=== PATIENT | male | born 1970 | race Caucasian/White ===

== ENCOUNTER → 2019-11-08 10:09 | Outpatient (CLI) | payer OTHER, SELFPAY ==
--- NOTE | 2019-11-08 10:13 | NM_ITS ---
CLINICAL: 49-year-old male with reported history of postprandial abdominal bloating. SEMI-SOLID PHASE 99m Tc SULFUR COLLOID GASTRIC EMPTYING STUDY COMPARISON: None available FINDINGS: The patient was administered 1.1 mCi of 99m Tc sulfur colloid mixed with oatmeal and consumed per os. Image acquisitions in the anterior-posterior projections for a total of 60 minutes. There is prompt visualization of the stomach. There is no gastroesophageal reflux identified. The T1/2 linear fit was calculated to be 51.11 minutes, (Normal: 12-56 minutes). NM/Gastric Emptying Study IMPRESSION: 1. NORMAL 99m Tc sulfur colloid semi-solid phase (oatmeal) gastric emptying imaging examination. A. There is normal and preserved semi-solid phase gastric emptying compared to normal controls. (Remedios et al, J Nucl Med Tech 38: 186, 2010). Electronically Signed: Didier Holm DO at 10:14 EST Tel , Service support ,
== END ==
PROVIDERS: PCP Family Medicine
DX: R11.0 Nausea (principal)
CPT/HCPCS: 78264; A9541

== ENCOUNTER → 2019-12-03 09:39 | Outpatient (CLI) | payer OTHER, SELFPAY ==
[2019-12-03 10:49] LABS: Absolute Lymphocyte Count 2.61 X10^3/uL (0.83-4.51); Absolute Neutrophil Count 3.8 X10^3/uL (2.0-7.7); Basophil# 0.04 X10^3/uL; Basophil% 0.6 % (0-1); Eosinophil# 0.16 X10^3/uL; Eosinophils% 2.2 % (0-5); Hematocrit 44.9 % (40-54); Hemoglobin 14.7 g/dL (13.0-16.5); Lymphocyte # 2.61 X10^3/ul (4.0); Lymphocyte % 36.3 % (19-41); Mean Corp Hgb Conc 32.7 g/dL (32-36); Mean Corpuscular Volume 82.4 fL (80-94); Monocyte% 8.3 % (0-10); NRBC Flagged by Analyzer 0 % (0-5); Neutrophil # 3.77 X10^3/uL (2.7-7.7); Neutrophil % 52.5 % (47-70); Platelet Count 255 K/mm3 (150-450); RBC Distribution Width CV 13.2 % (11.6-14.6); RBC Distribution Width SD 38.9 fl (35.1-43.9); Red Blood Count 5.45 M/mm3 (4.6-6.2); White Blood Count 7.2 K/mm3 (4.4-11.0)
[2019-12-03 11:23] LABS: ALB/GLOB Ratio 1.1 RATIO (0.9-2.4); AST(SGOT) 13 U/L (15-37); Alanine Aminotransfer ALT/SGPT 28 U/L (16-61); Albumin, Serum 3.9 g/dL (3.2-5.0); Alkaline Phosphatase 60 U/L (45-117); Amylase 63 U/L (25-115); Anion Gap 8 (5-15); BUN 17 mg/dL (7-18); BUN/Creat Ratio 14.5 RATIO (10-20); Calcium,Total 8.7 mg/dL (8.5-10.1); Chloride 102 mmol/L (98-107); Creatinine, Serum 1.17 mg/dL (0.70-1.30); EST Glomerular Filtration Rate 71 mL/min (>60); Est Glom Filt Rate - Afr Amer 85 mL/min (>60); Globulin 3.6 g/dL (2.2-4.2); Glucose 94 mg/dL (74-106); Lipase 131 U/L (73-393); Potassium 3.4 mmol/L (3.5-5.1); Protein, Total 7.5 g/dL (6.4-8.2); Sodium Level 139 mmol/L (136-145); T4 Free Direct 1.25 ng/dL (0.76-1.46); Thyroid Stim Hormone (TSH) 2.55 uIU/mL (0.358-3.74)
[2019-12-04 15:46] LABS: Deamidated Gliadin IgA 3 units (0-19); Deamidated Gliadin IgG 2 units (0-19); Immunoglobulin A 176 mg/dL (90-386); t-Transglutaminase IgA <2 U/mL (0-3)
== END ==
PROVIDERS: PCP Family Medicine
DX: K58.2 Mixed irritable bowel syndrome (principal)
CPT/HCPCS: 36415; 80053; 82150; 82784; 83516; 83690; 84439; 84443; 85025

== ENCOUNTER 2020-09-18 10:35 | Inpatient (IN) | payer OTHER, SELFPAY ==
[2020-09-18] VITALS (14 sets, daily range): BP systolic 124–173; BP diastolic 62–106; PULSE 71–143; RESP 16–24; TEMP 36.3–37.6; O2SAT 94–98; BMI 35.7
--- NOTE | 2020-09-18 10:53 | CT_ITS ---
STUDY: CT ABDOMEN AND PELVIS WITH CONTRAST REASON FOR EXAM: Male, 50 years old. BLOODY DIARRHEA X24 HOURS NAUSEA RADIATION DOSAGE (If Supplied By Facility): CTDIvol = ( 16.73 ) mGy, DLP = ( 1202.25 ) mGycm TECHNIQUE: Transaxial images were obtained from the dome of the diaphragm to the symphysis pubis without oral contrast. 100CC ISOVUE 300 and amp;amp; GASTROGRAFIN was administered. Sagittal and coronal images were reconstructed. Individualized dose optimization techniques were used for this CT. COMPARISON: None. FINDINGS: Mild degree of increased markings at the lung bases suggestive of atelectasis. The visualized portions of the heart are within normal limits. There is decreased attenuation of the liver consistent with steatosis. Normal gallbladder and extrahepatic biliary system. Normal spleen. Normal pancreas. Normal bilateral adrenal glands. There is a 3 mm nonobstructive calculus in the anterior pole calyx of the right kidney. Normal left kidney. There is a small hiatal hernia. Normal small intestine. Normal colon. The distal tip of the appendix is distended and measures 4.5 cm x 1.7 cm. 2 rounded densities seen within it. This may represent either a mucocele of the distal portion of the appendix or appendicitis with the partially calcified appendicoliths. Minimal increased markings are seen in the surrounding peritoneal fat. There is scattered atherosclerotic calcification of the abdominal aorta, without a demonstrated aneurysm. Normal inferior vena cava. Normal retroperitoneum. Normal urinary bladder. There are prostatic calcifications. There is a left-sided inguinal hernia containing adipose tissue. Normal osseous structures. CT/Abdomen/Pelvis WITH Contrast IMPRESSION: Fatty infiltration of the liver. 3 mm nonobstructive calculi seen in the anterior cortex of the right kidney. Dilatation of the distal tip of the appendix as described. 2 rounded densities seen within it. This may represent either a mucocele of the distal portion appendix or appendicitis with appendicoliths. Clinical correlation is recommended. Electronically Signed: Anmol Quispe, at 13:26 EST , Service support ,
--- NOTE | 2020-09-18 10:54 | ED.DCSUM_ITS ---
- ER Visit Summary Date of Service: 09/18/20 Chief Complaint: Bloody diarrhea History of Present Illness: The patient is a 50 M who presents with bloody diarrhea that has been constant since yesterday. Patient states he has had several episodes of this since yesterday. Patient admits to some mild diffuse abdominal cramping. Patient states his stools have been watery and maroon. Patient denies any bright red rectal bleeding. Patient admits to some nausea and vomiting. Patient denies any hematemesis or coffee-ground emesis. Patient denies any dysuria or hematuria. Patient states his cramping sometimes improves with eating. Physical Examination: Vital signs are stable except for tachycardia of 143 a mild tachypnea of 24. Patient is afebrile. Patient is in no acute distress. Oral mucosa is pink and moist. Neck is supple. Trachea is midline. There is no JVD noted. Heart was regular rate and rhythm. Lungs are clear and equal bilaterally. Abdomen is soft. Bowel sounds are normal. There is no tenderness. There is no rebound or guarding noted. Rectal exam showed good sphincter tone. There is no external hemorrhoid noted. There is some dark red blood noted with the stool. Skin is warm dry. Cranial nerves II through XII are intact. There are no focal motor or sensory deficits noted. Extremities are intact. There is no calf tenderness or edema. Test Results: CBC shows a mild leukocytosis of 12.5. Hemoglobin was stable at 16.7. Comprehensive metabolic profile showed a slightly elevated creatinine 1.48. BUN was 25. PT with INR and PTT were normal. Lipase was normal. CT scan of the abdomen pelvis was obtained. The distal tip of the appendix is dilated consistent with possible appendicitis. This was interpreted by the radiologist and reviewed by myself. COVID-19 rapid antigen was added on. EKG was obtained. On my interpretation, there is normal sinus rhythm with a rate of 91. There is some T wave inversion in leads V4 through V6. This was unchanged compared to previous EKG dated 05/17/2017. Emergency Department Course and Treatment: Patient was given IV fluids and Zofran. Case was discussed with Dr. Nolasco. He reviewed the CT scan and feels the patient does have appendicitis. He will take the patient to the operating room tonight. Patient was given a dose of Zosyn here. Patient understood and was agreeable with the plan. All questions were answered. Disposition: Admit to hospital Impression: 1. Acute appendicitis This note was generated with [employer] dictation software. It may contain incorrect words, spelling, and punctuation that were not noted in review of the chart prior to signing ED Disposition - Plan for ED Patient: Disposition: Acute Care Hospital [facility] Diagnosis: Acute appendicitis
[2020-09-18 11:04] LABS: Absolute Neutrophil Count 7.4 X10^3/uL (2.0-7.7); Basophil# 0.03 X10^3/uL; Basophil% 0.2 % (0-1); Eosinophil# 0.13 X10^3/uL; Hematocrit 48.8 % (40-54); Hemoglobin 16.7 g/dL (13.0-16.5); Lymphocyte % 27.1 % (19-41); Mean Corp Hgb Conc 34.2 g/dL (32-36); Mean Corpuscular Volume 81.7 fL (80-94); Mean Platelet Vol. 8.9 fl (6.2-12.0); Monocyte# 1.55 X10^3/uL; Monocyte% 12.4 % (0-10); NRBC Flagged by Analyzer 0 % (0-5); Neutrophil # 7.38 X10^3/uL (2.7-7.7); POSITIVE DIFFERENTIAL YES; Platelet Count 347 K/mm3 (150-450); RBC Distribution Width CV 13.5 % (11.6-14.6); RBC Distribution Width SD 39.4 fl (35.1-43.9); Red Blood Count 5.97 M/mm3 (4.6-6.2); White Blood Count 12.5 K/mm3 (4.4-11.0)
[2020-09-18 11:05] LABS: Differential Indicated SCAN CRITERIA MET
[2020-09-18] MEDS: 0.9% Normal Saline 1,000 ML 1000 ML IV (11:09)
[2020-09-18] MEDS: Ondansetron 4 MG/2 ML Vial IV (11:09)
[2020-09-18 11:15] LABS: AST(SGOT) 14 U/L (15-37); Alanine Aminotransfer ALT/SGPT 41 U/L (16-61); Albumin, Serum 4.1 g/dL (3.2-5.0); Alkaline Phosphatase 70 U/L (45-117); Anion Gap 10 (5-15); BUN 25 mg/dL (7-18); BUN/Creat Ratio 16.9 RATIO (10-20); Calcium,Total 8.6 mg/dL (8.5-10.1); Chloride 102 mmol/L (98-107); Creatinine, Serum 1.48 mg/dL (0.70-1.30); EST Glomerular Filtration Rate 54 mL/min (>60); Est Glom Filt Rate - Afr Amer 65 mL/min (>60); Estimated Creatinine Clearance 62.34 ml/min; Globulin 4.1 g/dL (2.2-4.2); Glucose 127 mg/dL (74-106); Lipase 101 U/L (73-393); Potassium 3.5 mmol/L (3.5-5.1); Protein, Total 8.2 g/dL (6.4-8.2); Sodium Level 135 mmol/L (136-145)
[2020-09-18 11:17] LABS: Prothrombin Time (Protime)PT. 12.8 SECONDS (11.7-14.9)
[2020-09-18 11:18] LABS: Partial Thromboplast Time 25.5 Seconds (24.1-36.2)
[2020-09-18 12:52] LABS: Pathologist Review Reviewed
--- NOTE | 2020-09-18 14:21 | EKG12_ITS ---
Test Reason : PRE OP Blood Pressure : / mmHG Vent. Rate : 091 BPM Atrial Rate : 091 BPM P-R Int : 152 ms QRS Dur : 088 ms QT Int : 362 ms P-R-T Axes : 028 060 -21 degrees QTc Int : 445 ms Normal sinus rhythm Nonspecific T wave abnormality Abnormal ECG Confirmed by EDWARD VALERO, NELLY ([id number]), slot editor JN STEWARD ([id number]) on 09/22/2020 9:48:49 AM Referred By: LANDON Confirmed By:NELLY LEON MD
--- NOTE | 2020-09-18 14:33 | HP.PCM_ITS ---
Problem List (1) Abdominal pain Status: Acute (2) Diarrhea Status: Acute History of Present Illness Date of Admission: 09/18/20 Chief Complaint: Bloody diarrhea The patient is a 50 year old M who presented with a 1 day history of nausea, dry heaves, diarrhea and rectal bleeding. Patient noted minimal amount of right sided abdominal pain associated with these symptoms. Patient states he has had 1 day history of lack of appetite. Patient notes the bright red rectal bleeding occurred yesterday. CT scan of the abdomen/pelvis was obtained which demonstrated: Fatty infiltration of the liver. 3 mm nonobstructive calculi seen in the anterior cortex of the right kidney. Dilatation of the distal tip of the appendix as described. 2 rounded densities seen within it. This may represent either a mucocele of the distal portion appendix or appendicitis with appendicoliths. Clinical correlation is recommended. Patient states he had a colonoscopy last year by a physician in [place]. Per patient, he had numerous polyps some that were not removed. Physician recommended short term follow-up. Patient is unsure when he is to go back. Patient notes mother had colon cancer in her 70's. Patient denies previous abdominal surgeries or other procedures. He denies cardiac history or pulmonary history. Patient mentioned he had COVID at the end of June. He was hospitalized for 1 night due to heart palpitations. He has not been around any family members or friends whom have tested positive within the last 14 days. He denies being more short of breath or having chest pain currently. He denies history of stroke, bl ood clots or myocardial infarction. He notes being placed on Heparin during his recent bout of COVID. He is no longer on anticoagulants. Patient takes HTN and cholesterol medication. WBC 12.5, Hgb 16.7, Hct 48.8, plt 347. Past Medical History Allergies No Known Allergies Allergy (Verified 09/18/20 10:38) Home Medications: Ambulatory Orders Medication Instructions Recorded Metoprolol(XL)Succ [Toprol Xl 50 mg PO DAILY 07/21/14 (Beta Aislinn)] Hydrochlorothiazide [Hctz] 25 mg PO DAILY 09/18/20 Lisinopril 5 mg PO DAILY 09/18/20 Surgical History: no surgical history Psychiatric History: No pertinent psych hx Lives: Spouse/ Significant Other Smoking Status: Former smoker Tobacco Use: Non-smoker Alcohol: None Drugs: None - *Family History Maternal History Items: Cancer - colon- age 70's Paternal History Items: No pertinent history Review of Systems Constitutional: Reports: Anorexia HEENT: Denies: Head Aches, Sinus Congestion, Sinus Drainage Cardiovascular: Denies: Chest Pain, Palpitations Respiratory: Denies: Cough, Shortness of breath at rest, Sputum production Gastrointestinal: Reports: Diarrhea, Hematochezia, Nausea, Vomiting Genitourinary: Denies: Dysuria Musculoskeletal: Denies: Joint Pain, Joint Tenderness Skin: Denies: Rash, Wounds Neurological: Denies: Numbness, Tingling, Focal weakness Psychiatric: Denies: Anxiety, Depression, Homicidal Ideations, Suicidal Ideations Hematologic/ Lymphatic: Denies: Easy Bruising, Easy Bleeding VTE Information - Inpt Only VTE Present on Admission: Yes Patient Problems: Active and Suspected Problems Abdominal pain (Acute) Diarrhea (Acute) - Physical Exam Vitals/I&O's: Vital Signs Temp Pulse Resp BP Pulse Ox 98.7 F 71 16 135/78 H 97 09/18/20 10:36 09/18/20 14:10 09/18/20 14:10 09/18/20 14:10 09/18/20 14:10 Oxygen Delivery Method Room Air Weight: 249 lb 5.485 oz Body Mass Index (BMI) 35.7 Intake and Output for Last 24 Hours 09/16/20 09/17/20 09/18/20 23:59 23:59 23:59 Intake Total 1000 / 1000 Balance 1000 / 1000 General: Alert, Oriented x3, Cooperative HEENT: Atraumatic, PERRLA, EOMI, Normocephalic Neck: Supple, No JVD, Negative Carotid Bruits Lungs: Clear to auscultation, Normal air movement Cardiovascular: Regular rate, No murmurs Abdomen: Soft, Hypoactive Bowel Sounds, Obese, Tender - right lower quadrant Extremities: No edema, Capillary Refill Less than 3 Seconds Skin: No rashes, No breakdown Musculoskeletal: No Tenderness to Palpation of Joints or Extremities Neurological: Neuro grossly intact Psych/Mental Status: Normal Affect, Appropriate Microbiology Past 72 Hours 09/18/20 10:54 Stool Stool Occult Blood (PHILLIP) - Final Occult Blood Positive Laboratory Results 09/18/20 10:44: WBC 12.5 H, RBC 5.97, Hgb 16.7 H, Hct 48.8, MCV 81.7, MCH 28.0, MCHC 34.2, RDW Std Deviation 39.4, RDW Coeff of Fausto 13.5, Plt Count 347, MPV 8.9, Immature Gran % (Auto) 0.300, Neut % (Auto) 59.0, Lymph % (Auto) 27.1, [place] % (Auto) 12.4 H, Eos % (Auto) 1.0, Baso % (Auto) 0.2, Absolute Neuts (auto) 7.4, Absolute Lymphs (auto) 3.40, Nucleated RBC % 0, Diff Path Review Reviewed 09/18/20 10:44: PT 12.8, INR 1.0, APTT 25.5 09/18/20 10:44: Sodium 135 L, Potassium 3.5, Chloride 102, Carbon Dioxide 23.0, Anion Gap 10, BUN 25 H, Creatinine 1.48 H, Estim Creat Clear Calc 62.34, Est GFR (MDRD) Af Amer 65, Est GFR (MDRD) Non-Af 54 L, BUN/Creatinine Ratio 16.9, Glucose 127 H, Calcium 8.6, Total Bilirubin 0.70, AST 14 L, ALT 41, Alkaline Phosphatase 70, Total Protein 8.2, Albumin 4.1, Globulin 4.1, Albumin/Globulin Ratio 1.0, Lipase 101 Current Medications Piperacillin Sod/Tazobactam (Sod 4.5 gm/ Sodium Chloride) 100 mls @ 200 mls/hr IV X1 ONE Stop: 09/18/20 14:37 Last Admin: 09/18/20 14:27 Dose: 200 mls/hr Documented by: Assessment/Plan All Active Problems Abdominal pain (Acute) Diarrhea (Acute) I am following this patient in conjunction with Dr. Nolasco. He will independently evaluate this patient. Impression: Acute appendicitis. Bloody diarrhea. Nausea/vomiting x 1 day. Plan: Discussed patient with Dr. Nolasco. Dr. Nolasco will plan to perform a laparoscopic appendectomy. Procedure details, risks and benefits have been explained. Patient has had the opportunity to ask and have questions answered. Patient verbally understands and agrees with the plan. He will be admitted for observation following the procedure. Thank you for allowing us to participate in this patient's care. Office Visits / Consults: [id number] OP Consult L3
--- NOTE | 2020-09-18 15:30 | APP_PTH ---
PATIENT: FROYLAN LA LOC: MS3 U#:[id number] AGE/SX: 50/M ROOM: [facility] RE09/18/[address]: Dr. Johnny Nolasco MD : 1970 BED: 1 DIS: 09/19/2020 SPEC #: [id number] RECD: 09/19/20 07:35 STATUS: TREVON HUNT #: [id number] NEL: 09/18/20 15:[address]: Johnny Nolasco DEPT: SURGICAL PATHOLOGY RECD BY: Sanam Bender ENTERED: 09/19/20 08:10 SP TYPE: APPENDIX OTHR DR: MD Dr. Hai Rae MD Tissues: Appendix, NOS Procedures: Surgery Specimen Level IV HEADER OPERATION: Laparoscopic appendectomy, repair of small bowel enterotomy PRE-OP DIAGNOSIS: Abdominal pain, diarrhea TISSUE SUBMITTED: Appendix MICROSCOPIC DIAGNOSIS Appendix, appendectomy: Minimal early acute appendicitis. Focal hyperplastic changes. :bella 09/23/2020 COMMENT Minimal acute inflammation is noted in the lumen and superficial mucosa. Dilated portion of the appendix show focal hyperplastic changes. The entire appendix is examined. Case has been reviewed in consultation with Dr. Carr who concurs with the above diagnosis. IDC:AM MICROSCOPIC DESCRIPTION Slides are reviewed. GROSS DESCRIPTION Received in fixative is one container labeled with the patient's name and designated appendix. The specimen consists of an appendix measuring 6 cm in length and diameter varies from 1 to 1.5 cm. No gross perforations are evident. Serial sections reveal a patent lumen with fecal material. No mass lesion is identified. Glost Kiln Operator sections are submitted in one cassette. / AM:bella 09/19/2020 The rest of the appendix is submitted in four more cassettes, 2-5. Cassette 2 contains the rest of the tip and most proximal portion of the appendix. / SJ:bella 09/22/20 TC:5 CPT: 48077
[2020-09-18] MEDS: Bupiv/Epi 0.25% 30 ML Vial (16:23)
--- NOTE | 2020-09-18 16:53 | OP.PCM_ITS ---
Problem List (1) Acute appendicitis Status: Acute Qualifiers: Acute appendicitis type: unspecified acute appendicitis type Qualified Code(s): K35.80 - Unspecified acute appendicitis Report of Operation Date of Procedure: 09/18/20 Pre-Operative Diagnosis: Acute appendicitis Post-Operative Diagnosis: 1. Iatrogenic enterotomy of small bowel. 2. Dilated appendix Surgery/Procedure Performed:: 1. Laparoscopic appendectomy. 2. Repair of enterotomy Specimen's removed: Appendix Description of Procedure: The patient was brought into the operating room and general anesthesia was induced. The left arm was tucked and the abdomen was prepped and draped in usual sterile fashion. A small midline incision was made superior to the umbilicus and deepened to the level of the fascia. The fascia was elevated and incised. The peritoneum was also elevated and incised. A finger sweep was performed and a balloon trocar was placed into the abdomen and inflated. The abdomen was insufflated to 15 mmHg and the camera was inserted and the abdomen was inspected for any injuries upon entering the abdomen. There appeared to be some blood on a small area of small bowel. This was inspected further and there appeared to be a small injury to the sidewall of a segment of small bowel from injury to the abdomen. The patient was placed in Trendelenburg position and a 5 mm ports placed in the left lower quadrant and suprapubic areas under direct visualization. Next using atraumatic bowel graspers the appendix was identified. The appendix was grasped and elevated and Enseal was used to take down the mesoappendix. A stapler was used to come across the base of the appendix. The appendix was then placed in Endo Catch bag and removed through the umbilical incision. The staple line was inspected and found to be hemostatic and intact. The balloon trocar was deflated and removed and all the air was removed from the abdomen. The midline fascial incision was extended approximately 1 cm and the small bowel was delivered through this umbilical fascia. The injury was located and appear to be full-thickness. It was closed in 2 layers with interrupted 3-0 silk sutures. There is good hemostasis and no succus leaking from the stool at the end of the case. The small bowel was returned into the abdomen. The midline incision fascia was closed with two 0 Vicryl [id number] suture. The incisions were then irrigated with saline and dried. Local anesthetic was injected into the incision sites. The skin incisions were then closed with interrupted 4-0 Monocryl suture and Steri- Strips. Bandages were applied and the patient was awoken and taken to PACU in stable condition. Patient tolerated the procedure well. - Complications Small bowel enterotomy, repaired with suture - Admit VTE Documentation VTE Mechan Device Prophylaxis: SCD's
[2020-09-18] MEDS: Lactated Ringers 1,000 ML 100 ML IV (17:15)
--- NOTE | 2020-09-18 19:35 | CON.PCM_ITS ---
Problem List (1) Abnormal ECG Status: Acute (2) HLD (hyperlipidemia) Status: Chronic (3) HTN (hypertension) Status: Chronic (4) Acute appendicitis Status: Acute Qualifiers: Acute appendicitis type: unspecified acute appendicitis type Qualified Code(s): K35.80 - Unspecified acute appendicitis Reason for Consult Date of Consultation: 09/18/20 History of Present Illness: The patient is a 50 year [id number] white male who is status post an acute appendectomy who is referred for evaluation of an abnormal ECG. He states he has been evaluated by cardiology at [facility] in [place], [place] several years ago for an abnormal ECG. He states he underwent variety of testing including a diagnostic cardiac catheterization. He was told he had a extra artery . He states he did follow with a policy intern for period of time and subsequently they decided that he needed no further cardiac evaluation or care. He does state that he has a history of hyperlipidemia and hypertension. He has not been treated for hyperlipidemia. He appears to been on medication for h ypertension. He denies any ongoing chest discomfort or difficulty breathing. He states he occasionally has a palpitation. He has had no near syncope or syncope. Today he states he presented for abdominal discomfort and a report of bright red blood per rectum. He was diagnosed with acute appendicitis and underwent an an acute appendectomy. In preparation for his surgery anesthesiology noted his ECG demonstrated abnormal T waves. A troponin I level was obtained which was negative. He proceeded with the surgery with no obvious cardiovascular compromise. He has had ECGs at [facility] in the past. Based upon review of his previous ECGs he has had sinus rhythm with T wave abnormalities. [] Past Medical History Allergies/Adverse Reactions: Allergies No Known Allergies Allergy (Verified 09/18/20 10:38) Home Medications: Ambulatory Orders Medication Instructions Recorded Metoprolol(XL)Succ [Toprol Xl 50 mg PO DAILY 07/21/14 (Beta Aislinn)] Hydrochlorothiazide [Hctz] 25 mg PO DAILY 09/18/20 Lisinopril 5 mg PO DAILY 09/18/20 Past Medical History (Chronic Problems): Chronic Problems HLD (hyperlipidemia) (Chronic) HTN (hypertension) (Chronic) Surgical History: no surgical history Psychiatric History: No pertinent psych hx - *Family History Maternal History Items: Cancer - colon- age 70's Paternal History Items: No pertinent history Lives: Spouse/ Significant Other Smoking Status: Former smoker Tobacco Use: Non-smoker Alcohol: None Drugs: None Review of Systems - Review of Systems General: Denies: Fever, Night Sweats, Fatigue Cardiovascular: Reports: Palpitations. Denies: Chest Discomfort, Shortness of Breath, Orthopnea, PND, Peripheral Edema, Lightheadedness, Dizziness, Near Syncope, Syncope Respiratory: Denies: Cough, Sputum Production, Hemoptysis Gastrointestinal: Reports: Abdominal Discomfort, Hematochezia. Denies: Hematemesis, Melena Genitourinary: Denies: Dysuria, Hematuria Skin: Denies: Rash Subjectve: This appears to be a 50-year-old white male who is resting comfortably at the moment in no acute distress. Objective: Vital Signs Temp Pulse Resp BP Pulse Ox 97.4 F L 104 H 16 151/62 H 97 09/18/20 18:43 09/18/20 18:43 09/18/20 18:43 09/18/20 18:43 09/18/20 18:43 Oxygen Flow Rate (L/min) 2 Oxygen Delivery Method Nasal Cannula Weight: 249 lb 5.485 oz Body Mass Index (BMI) 35.7 Intake and Output for Last 24 Hours 09/16/20 09/17/20 09/18/20 23:59 23:59 23:59 Intake Total 1275 / 1275 Balance 1275 / 1275 General: Awake, Alert, Oriented x 3, Cooperative, No Acute Distress, Obese HEENT: Atraumatic, Normocephalic, PERRL, EOMI, Sclera Non Icteric Neck: Supple, Good ROM, No JVD Lungs: Clear to auscultation Cardiovascular: Regular Rhythm, Normal S1, Normal S2 Abdomen: Bowel Sounds Present Extremities: No edema Neurological: No Focal Motor or Sensory Deficit Psych/Mental Status: Appropriate 09/18/20 10:44: WBC 12.5 H, RBC 5.97, Hgb 16.7 H, Hct 48.8, MCV 81.7, MCH 28.0, MCHC 34.2, Plt Count 347, MPV 8.9, Immature Gran % (Auto) 0.300, Neut % (Auto) 59.0, Lymph % (Auto) 27.1, [place] % (Auto) 12.4 H, Eos % (Auto) 1.0, Baso % (Auto) 0.2, Absolute Neuts (auto) 7.4, Nucleated RBC % 0 09/18/20 10:44: PT 12.8, INR 1.0, APTT 25.5 09/18/20 10:44: Sodium 135 L, Potassium 3.5, Chloride 102, Carbon Dioxide 23.0, Anion Gap 10, BUN 25 H, Creatinine 1.48 H, Est GFR (MDRD) Af Amer 65, Est GFR (MDRD) Non-Af 54 L, BUN/Creatinine Ratio 16.9, Glucose 127 H, Calcium 8.6, Total Bilirubin 0.70 09/18/20 10:44: Troponin I < 0.015 Rhythm: Sinus rhythm EKG: Sinus rhythm; T wave abnormality-inferolateral; compared to previous [facility] ECGs dating back to 2015 there appeared to be similar type changes Assessment/Plan 1. Abnormal ECG The patient does have an abnormal ECG. In comparison the previous ECGs dating back to 2015 available for review there appear to be similar type changes. He states his ECGs have always been considered abnormal . At the present time he does not appear to have any acute cardiovascular symptoms. He did not experience any adverse cardiovascular events from his noncardiac surgery. He did have a troponin I level which was negative. At the moment he will continue to recuperate from his appendectomy. He is being followed on quality assurance monitor chassis. He can have a follow-up ECG to look for any other obvious acute dynamic changes. In the interim attempt will be made to retrieve previous medical records from [facility] for continuity of care purposes. 2. Hyperlipidemia His lipid labs will be checked. Depending upon the findings he may need to be placed on lipid-lowering therapy. 3. Hypertension He should resume his antihypertensive therapy when he is able to from a surgical standpoint. 4. Acute appendicitis status post appendectomy He will continue followed by general surgery. Comment: The patient's case has been previously discussed with Dr. Nolasco. Thank you for allowing me to participate in the care of your patient. This note was generated using a voice recognition system and there may be incorrect words, spelling or punctuation that were not noted when reviewing the office note prior to saving.
[2020-09-18] MEDS: 0.9% Normal Saline 1,000 ML 125 ML IV (20:36)
[2020-09-18] MEDS: Acetaminophen 325 MG Tablet 650 MG PO (23:05)
[2020-09-19] VITALS (7 sets, daily range): BP systolic 124–155; BP diastolic 65–85; PULSE 82–104; RESP 16–18; TEMP 36.6–37.3; O2SAT 92–98
[2020-09-19] MEDS: 0.9% Normal Saline 1,000 ML 125 ML IV (04:12)
--- NOTE | 2020-09-19 05:55 | EKG12_ITS ---
Test Reason : AM EKG Blood Pressure : / mmHG Vent. Rate : 083 BPM Atrial Rate : 083 BPM P-R Int : 150 ms QRS Dur : 090 ms QT Int : 364 ms P-R-T Axes : 034 055 006 degrees QTc Int : 427 ms Normal sinus rhythm Nonspecific T wave abnormality Abnormal ECG Confirmed by EDWARD VALERO, NELLY ([id number]), assignment editor JN STEWARD ([id number]) on 09/22/2020 9:55:36 AM Referred By: EDWARD Confirmed By:NELLY LEON MD
[2020-09-19 05:57] LABS: Absolute Neutrophil Count 5.8 X10^3/uL (2.0-7.7); Hematocrit 38.7 % (40-54); Mean Corp Hgb Conc 33.6 g/dL (32-36); Mean Corpuscular Hgb 27.9 pg (27.0-32.0); Mean Platelet Vol. 8.9 fl (6.2-12.0); Monocyte# 0.49 X10^3/uL; Monocyte% 6.5 % (0-10); NRBC Flagged by Analyzer 0 % (0-5); Neutrophil % 77.2 % (47-70); Platelet Count 236 K/mm3 (150-450); RBC Distribution Width CV 13.2 % (11.6-14.6); RBC Distribution Width SD 40.1 fl (35.1-43.9); Red Blood Count 4.66 M/mm3 (4.6-6.2); White Blood Count 7.5 K/mm3 (4.4-11.0)
[2020-09-19 06:27] LABS: Anion Gap 7 (5-15); BUN 15 mg/dL (7-18); BUN/Creat Ratio 13.3 RATIO (10-20); Calcium,Total 7.8 mg/dL (8.5-10.1); Chloride 104 mmol/L (98-107); Cholesterol 123 mg/dL (200); Creatinine, Serum 1.13 mg/dL (0.70-1.30); EST Glomerular Filtration Rate 73 mL/min (>60); Est Glom Filt Rate - Afr Amer 89 mL/min (>60); Estimated Creatinine Clearance 81.65 ml/min; Glucose 130 mg/dL (74-106); High Density Lipoprotein 43 mg/dL; Potassium 3.7 mmol/L (3.5-5.1); Sodium Level 136 mmol/L (136-145); Triglycerides 92 mg/dL; Very Low Density Lipoprotein 18 mg/dL (5-40)
--- NOTE | 2020-09-19 08:28 | PN.CARD_ITS ---
Subjectve: The patient appears to be awake and alert this morning. He states he is feeling better overall. He denies any concerning chest discomfort or difficulty breathing. Objective: Vital Signs Temp Pulse Resp BP Pulse Ox 97.8 F 83 16 147/80 H 98 09/19/20 07:41 09/19/20 07:45 09/19/20 07:41 09/19/20 07:41 09/19/20 07:41 Oxygen Flow Rate (L/min) 2 Oxygen Delivery Method Nasal Cannula Weight: 249 lb 5.485 oz Body Mass Index (BMI) 35.7 Intake and Output for Last 24 Hours 09/17/20 09/18/20 09/19/20 23:59 23:59 23:59 Intake Total 2400 / 2400 1300 / 1300 Balance 2400 / 2400 1300 / 1300 General: Awake, Alert, Oriented x 3, Cooperative, No Acute Distress, Obese HEENT: Atraumatic, Normocephalic, PERRL, EOMI, Sclera Non Icteric Neck: Supple, Good ROM, No JVD Lungs: Clear to auscultation Cardiovascular: Regular Rhythm, Normal S1, Normal S2 Abdomen: Bowel Sounds Present Extremities: No edema Neurological: No Focal Motor or Sensory Deficit Psych/Mental Status: Appropriate 09/18/20 10:44: WBC 12.5 H, RBC 5.97, Hgb 16.7 H, Hct 48.8, MCV 81.7, MCH 28.0, MCHC 34.2, Plt Count 347, MPV 8.9, Immature Gran % (Auto) 0.300, Neut % (Auto) 59.0, Lymph % (Auto) 27.1, [place] % (Auto) 12.4 H, Eos % (Auto) 1.0, Baso % (Auto) 0.2, Absolute Neuts (auto) 7.4, Nucleated RBC % 0 09/18/20 10:44: PT 12.8, INR 1.0, APTT 25.5 09/18/20 10:44: Sodium 135 L, Potassium 3.5, Chloride 102, Carbon Dioxide 23.0, Anion Gap 10, BUN 25 H, Creatinine 1.48 H, Est GFR (MDRD) Af Amer 65, Est GFR (MDRD) Non-Af 54 L, BUN/Creatinine Ratio 16.9, Glucose 127 H, Calcium 8.6, Total Bilirubin 0.70 09/18/20 10:44: Troponin I < 0.015 09/19/20 05:20: WBC 7.5, RBC 4.66, Hgb 13.0, Hct 38.7 L, MCV 83.0, MCH 27.9, MCHC 33.6, Plt Count 236, MPV 8.9, Immature Gran % (Auto) 0.300, Neut % (Auto) 77.2 H, Lymph % (Auto) 16.0 L, [place] % (Auto) 6.5, Eos % (Auto) 0.0, Baso % (Auto) 0.0, Absolute Neuts (auto) 5.8, Nucleated RBC % 0 09/19/20 05:20: Sodium 136, Potassium 3.7, Chloride 104, Carbon Dioxide 25.0, Anion Gap 7, BUN 15, Creatinine 1.13, Est GFR (MDRD) Af Amer 89, Est GFR (MDRD) Non-Af 73, BUN/Creatinine Ratio 13.3, Glucose 130 H, Calcium 7.8 L, Triglycerides 92, Cholesterol 123, LDL Cholesterol 62, VLDL Cholesterol 18, HDL Cholesterol 43 Rhythm: Sinus rhythm EKG: Sinus rhythm; nonspecific T wave abnormality Medical Necessity - Tobacco Use Smoking Status: Former smoker Tobacco Use: Non-smoker Assessment/Plan 1. Abnormal ECG The patient does have an abnormal ECG. In comparison the previous ECGs dating back to 2016 available for review there appear to be similar type changes. He states his ECGs have always been considered abnormal . At the present time he does not appear to have any acute cardiovascular symptoms. He did not experience any adverse cardiovascular events from his noncardiac surgery. He did have a troponin I level which was negative. At the moment he will continue to recuperate from his appendectomy. 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 He had a follow-up ECG which continue to demonstrate nonspecific T wave abnormality with no acute changes. Additional medical records from [facility] have not yet arrived. 2. Hyperlipidemia His lipid labs were reviewed. They appear to be under reasonably good control at this time. 3. Hypertension He should resume his antihypertensive therapy when he is able to from a surgical standpoint. 4. Acute appendicitis status post appendectomy He will continue followed by general surgery. Overall, from a cardiac standpoint, he will continue to be monitored while he remains in his postoperative state as needed, continue his medications for his hypertension history as he is able, with no immediate plans for additional cardiac diagnostic studies/intervention at this time pending a change in his clinical course, etc. This note was generated using a voice recognition system and there may be incorrect words, spelling or punctuation that were not noted when reviewing the office note prior to saving.
--- NOTE | 2020-09-19 11:47 | PCM.DC.APPY ---
Discharge Diet: Light diet - advance as tolerated Discharge Activity: May Shower Lifting Restrictions: 20 lbs for 2 weeks Call your doctor if your incision/area has: Continuous Slow Oozing, Sudden Increased Bleeding, Increased Pain/ Swelling, Increased Redness, Foul Smelling Discharge, - - Blood in the stool Call your doctor if you observe: Fever of 101 or Higher Suture Line Care: Avoid Pulling/Pushing, Avoid Pinching/Bending Additional Dressing/Incision Instructions:: Keep dressing clean and dry. Change or remove dressing in 2 days. Leave steri strips for 1 week. May protect with a gauze bandaid. Medications to take at Discharge Metoprolol(XL)Succ [Toprol Xl (Beta Aislinn)] 50 mg PO DAILY 07/21/14 Hydrochlorothiazide [Hctz] 25 mg PO DAILY 09/18/20 Lisinopril 5 mg PO DAILY 09/18/20 Atorvastatin Calcium 40 mg PO DAILY 09/19/20 Oxycodone HCl/Acetaminophen [Percocet 5-325 mg Tablet] 1 tab PO Q6H PRN PRN 3 Days #10 tablet 09/19/20 Allergies/Adverse Reactions: Allergies No Known Allergies Allergy (Verified 09/18/20 10:38) The following prescriptions were given: Oxycodone HCl/Acetaminophen [Percocet 5-325 mg Tablet] 1 tab PO Q6H PRN PRN 3 Days #10 tablet PRN Reason: Pain Score 4-10/10 Transmission Status: Sent to [facility] Primary Care Physician: Veronika Adam MD [Primary Care Provider] - Test Results: Test results from this visit will be discussed in further detail at your follow-up appointment, if applicable. Please Follow Up With: Johnny Nolasco MD When: Please call to schedule 2 week follow up appointment. [phone]
--- NOTE | 2020-09-19 11:51 | PN.SURG_ITS ---
Patient Problems: Active and Suspected Problems Abdominal pain (Acute) Diarrhea (Acute) Acute appendicitis (Acute) Abnormal ECG (Acute) Subjective: Patient is tolerating regular diet with minimal abdominal pain - Physical Exam Vitals/I&O's: Vital Signs Temp Pulse Resp BP Pulse Ox 97.8 F 98 16 155/85 H 94 09/19/20 11:36 09/19/20 11:36 09/19/20 11:36 09/19/20 11:36 09/19/20 11:36 Oxygen Flow Rate (L/min) 2 Oxygen Delivery Method Room Air Weight: 249 lb 5.485 oz Body Mass Index (BMI) 35.7 Intake and Output for Last 24 Hours 09/17/20 09/18/20 09/19/20 23:59 23:59 23:59 Intake Total 2400 / 2400 1850 / 1850 Balance 2400 / 2400 1850 / 1850 General: Alert, Oriented x3 Lungs: Normal air movement Abdomen: Soft, Non Tender, Non-Distended Microbiology Past 72 Hours 09/18/20 14:11 Mucosa - Nose SARS-CoV-2 Antigen (Rapid) - Final 09/18/20 10:54 Stool Stool Occult Blood (PHILLIP) - Final Occult Blood Positive Laboratory Results 09/18/20 10:44: Diff Path Review Reviewed 09/18/20 10:44: Troponin I < 0.015 09/19/20 05:20: WBC 7.5, RBC 4.66, Hgb 13.0, Hct 38.7 L, MCV 83.0, MCH 27.9, MCHC 33.6, RDW Std Deviation 40.1, RDW Coeff of Fausto 13.2, Plt Count 236, MPV 8.9, Immature Gran % (Auto) 0.300, Neut % (Auto) 77.2 H, Lymph % (Auto) 16.0 L, [place] % (Auto) 6.5, Eos % (Auto) 0.0, Baso % (Auto) 0.0, Absolute Neuts (auto) 5.8, Absolute Lymphs (auto) 1.20, Nucleated RBC % 0 09/19/20 05:20: Sodium 136, Potassium 3.7, Chloride 104, Carbon Dioxide 25.0, Anion Gap 7, BUN 15, Creatinine 1.13, Estim Creat Clear Calc 81.65, Est GFR (MDRD) Af Amer 89, Est GFR (MDRD) Non-Af 73, BUN/Creatinine Ratio 13.3, Glucose 130 H, Calcium 7.8 L, Triglycerides 92, Cholesterol 123, LDL Cholesterol 62, VLDL Cholesterol 18, HDL Cholesterol 43 Current Medications Acetaminophen (Acetaminophen 325 Mg Tablet) 650 mg PO Q4H PRN PRN PRN Reason: Pain 1-10 or Fever Last Admin: 09/18/20 23:05 Dose: 650 mg Documented by: Sodium Chloride () 1,000 mls @ 125 mls/hr IV .Q8H GUS Last Admin: 09/19/20 04:12 Dose: 125 mls/hr Documented by: Sodium Chloride () 250 mls @ 15 mls/hr IV .[id number] PRN PRN Reason: Saline Flush Sodium Chloride () 250 mls @ 15 mls/hr IV .[id number] PRN PRN Reason: Additional IVPB Infusion Morphine Sulfate (Morphine 2 Mg/Ml Syringe) 2 - 4 mg IV Q2H PRN PRN PRN Reason: Pain Score 4-10 Morphine Sulfate (Morphine 4 Mg/Ml Syringe) 2 - 4 mg IV Q2H PRN PRN PRN Reason: Pain Score 4-10 Ondansetron HCl (Ondansetron 4 Mg/2 Ml Vial) 4 mg IV Q6H PRN PRN PRN Reason: NAUSEA Sodium Chloride (0.9% Saline Lock 10 Ml Syringe) 10 - 40 ml IV UD PRN PRN Reason: SALINE FLUSH Medical Necessity - Tobacco Use Smoking Status: Former smoker Tobacco Use: Non-smoker Assessment/Plan All Active Problems Abdominal pain (Acute) Diarrhea (Acute) Acute appendicitis (Acute) Abnormal ECG (Acute) 50-year-old male status post laparoscopic appendectomy 1. Patient underwent laparoscopic appendectomy yesterday afternoon. There was a small enterotomy which was repaired. 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 The patient notes no bloody bowel movements since surgery yesterday. 2. Cardiology was consulted due to T wave changes on the preoperative EKG. They did see him yesterday. 3. I have asked the patient to follow-up with me in 2 weeks. If there is any increased abdominal pain or nausea or vomiting or fevers or chills or bright red blood in the stool he is to report to me earlier. Johnny Nolasco MD Pager: [facility] [address] [place] [address], [address] [place] [address] Office:
--- NOTE | 2020-09-19 13:05 | CASEMGMT ---
NIKOLE MARADIAGA attempted to completed assessment at this time. Patient is walking down mahmood to discharge home. Patient ambulating independently, denies needs at discharge, with patient. Patient had no questions or concerns at this time.
== END 2020-09-19 13:26 | disposition home or self-care (01) | DRG 331 ==
LOC: ED 14:08 → SDC 14:31 → AC 14:32 → MS3 09-19 07:12 → SDC 09-19 09:11 → MS3 09-19 09:11
PROVIDERS: Anesthesiology; Admitting Provider Surgery; Emergency Provider Emergency Medicine; PCP Family Medicine; Visit Provider Surgery
PROC: 0DTJ4ZZ Resection of Appendix, Percutaneous Endoscopic Approach (ICD-10-PCS; CPT 44970; principal; 2020-09-18 15:10)
DX: K35.80 Unspecified acute appendicitis (principal); K38.8 Other specified diseases of appendix; R94.31 Abnormal electrocardiogram [ECG] [EKG]; E78.5 Hyperlipidemia, unspecified; I10 Essential (primary) hypertension; K76.0 Fatty (change of) liver, not elsewhere classified; Z80.0 Family history of malignant neoplasm of digestive organs; Z87.891 Personal history of nicotine dependence
CPT/HCPCS: 74177; 80048; 80053; 80061; 82274; 83690; 84484; 85025; 85610; 85730; 87426; 88304; 88305; 93005; 99251; 99285; J7030; J7050; J7120; Q9967; A4216; C1760; G0463; J2405

== ENCOUNTER 2025-01-19 05:13 | Emergency (ER) | payer OTHER, SELFPAY ==
[2025-01-19 05:14] VITALS: BP 167/109; PULSE 72; RESP 18; TEMP 37.2; O2SAT 96; BMI 39.9
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
--- NOTE | 2025-01-19 05:31 | EKG12_ITS ---
Test Reason : DYSRHYTHMIA Blood Pressure : */* mmHG Vent. Rate : 70 BPM Atrial Rate : 70 BPM P-R Int : 158 ms QRS Dur : 90 ms QT Int : 368 ms P-R-T Axes : 31 48 -77 degrees QTcB Int : 397 ms Normal sinus rhythm Septal infarct , age undetermined T wave abnormality, consider inferior ischemia Abnormal ECG Confirmed by Kareem Chen ([id number]), writer editor JN STEWARD ([id number]) on 01/21/2025 9:02:43 AM Referred By: Confirmed By: Kareem Chen
[2025-01-19] MEDS: Orphenadrine 60 MG/2 ML Ampul IM (05:36)
[2025-01-19] MEDS: Morphine 4 MG/ML Syringe IM (05:36)
[2025-01-19 06:54] VITALS: BP 153/100; PULSE 73; RESP 18; TEMP 36.4; O2SAT 93
== END 2025-01-19 06:59 | disposition home or self-care (01) ==
PROVIDERS: Emergency Provider Emergency Medicine; PCP Family Medicine; Visit Provider Emergency Medicine
DX: M25.512 Pain in left shoulder (principal); I10 Essential (primary) hypertension; E78.5 Hyperlipidemia, unspecified; V29.99XD Rider (driver) (passenger) of other motorcycle injured in unspecified traffic accident, subsequent encounter
CPT/HCPCS: 93005; 96372; 99282

== ENCOUNTER → 2025-02-26 | Outpatient (CLI) | payer OTHER, SELFPAY ==
[2025-02-26 12:01] LABS: Absolute Lymphocyte Count 3.27 X10^3/uL (0.83-4.51); Absolute Neutrophil Count 4.3 X10^3/uL (2.0-7.7); Basophil# 0.04 X10^3/uL; Basophil% 0.5 % (0-1); Eosinophil# 0.13 X10^3/uL; Eosinophils% 1.5 % (0-5); Hemoglobin 14.1 g/dL (13.0-16.5); Lymphocyte # 3.27 X10^3/ul (0.83-4.51); Lymphocyte % 38.7 % (19-41); Mean Corp Hgb Conc 33.6 g/dL (32-36); Mean Corpuscular Hgb 27.4 pg (27.0-32.0); Mean Corpuscular Volume 81.7 fL (80-94); Mean Platelet Vol. 9.8 fl (6.2-12.0); Monocyte# 0.68 X10^3/uL; NRBC Flagged by Analyzer 0 % (0-5); Neutrophil # 4.29 X10^3/uL (2.7-7.7); Neutrophil % 50.8 % (47-70); Platelet Count 282 K/mm3 (150-450); RBC Distribution Width CV 13.2 % (11.6-14.6); RBC Distribution Width SD 39.2 fl (35.1-43.9); Red Blood Count 5.14 M/mm3 (4.6-6.2); White Blood Count 8.5 K/mm3 (4.4-11.0)
== END | disposition home or self-care (01) ==
LOC: LAB 11:10
PROVIDERS: PCP Family Medicine; Referring Provider Physician Assistant Surgical; Visit Provider Physician Assistant Surgical
DX: I10 Essential (primary) hypertension (principal)
CPT/HCPCS: 36415; 85025